=== PATIENT | female | born 1950 | race Caucasian/White ===

== ENCOUNTER 2023-01-22 13:09 | Emergency (ER) | payer MEDICARE, SELFPAY ==
[2023-01-22] VITALS (7 sets, daily range): BP systolic 146–163; BP diastolic 91–103; PULSE 106–110; RESP 23–29; TEMP 37.3; O2SAT 98–99; BMI 23.2
--- NOTE | 2023-01-22 13:14 | EKG12_ITS ---
Test Reason : NEURO Blood Pressure : / mmHG Vent. Rate : 109 BPM Atrial Rate : 109 BPM P-R Int : 174 ms QRS Dur : 090 ms QT Int : 352 ms P-R-T Axes : 071 047 061 degrees QTc Int : 474 ms Sinus tachycardia Otherwise normal ECG Confirmed by MARSHALL HASSAN, SALLY ([id number]), assignment desk editor CIARA MARQUIS ([id number]) on 01/23/2023 2:20:54 PM Referred By: Confirmed By:SALLY OLIVARES MD
--- NOTE | 2023-01-22 13:14 | CT_ITS ---
STUDY: CT HEAD STROKE PROTOCOL W/O CONTRAST INJECTION REASON FOR EXAM: Female, 72 years old. Neuro deficit, acute, stroke suspected RADIATION DOSAGE (If Supplied By Facility): CTDIvol = ( 44.99 ) mGy, DLP = ( 796.11 ) mGycm TECHNIQUE: Transaxial CT imaging of the brain was performed without administration of intravenous contrast material. Individualized dose optimization techniques were used for this CT. COMPARISON: No relevant priors. FINDINGS: Normal soft tissue structures. Normal calvarium. There is mild cerebral atrophy with widening of the extra-axial spaces and ventricular dilatation. There are areas of decreased attenuation within the white matter tracts of the supratentorial brain, consistent with microvascular disease changes. There is evidence of a ischemic change in the right basal ganglion. There are small punctate calcifications of the basal ganglia which are seen in the aging brain as a normal variant. Normal brainstem. Normal cerebellum. There is no intracranial hemorrhage. There are no findings of an acute ischemic infarction. Normal visualized paranasal sinuses. ASPECT score: 8 CT/STROKE Brain/Head without Cont IMPRESSION: Findings suggestive of a lacunar infarct in the right basal ganglion. N.B. : The above Results were Read Back by Samm Salmon MD to Dr Jarrod DO, and understanding confirmed on 01/22/2023 13:52:08 (ET). Electronically Signed: Samm Salmon MD at 13:53 EDT ,
--- NOTE | 2023-01-22 13:15 | CT_ITS ---
INDICATION: Neuro deficit, acute, stroke suspected --CTA NECK: AORTIC ARCH AND BRANCHES: Normal anatomy, patent. RIGHT CCA: No occlusion, significant stenosis or dissection. RIGHT ICA: Mild atherosclerotic calcifications in the right bulb region extending to the origin of the right internal carotid artery without significant stenosis. LEFT CCA: No occlusion, significant stenosis or dissection. LEFT ICA: Severe narrowing and near complete occlusion of the origin of the left internal carotid artery. Filling defects in the proximal left internal carotid artery consistent with thrombus. Diffuse narrowing of the caliber of the distal left internal carotid artery. RIGHT VERTEBRAL ARTERY: No occlusion, significant stenosis or dissection. LEFT VERTEBRAL ARTERY: No occlusion, significant stenosis or dissection. NECK SOFT TISSUES: Large right lobe of the thyroid gland with possible small nodules. --CTA HEAD: --Anterior circulation: ICAs: There are sclerotic calcifications with moderate narrowing of the left supraclinoid internal carotid artery. ACAs: No significant stenosis at the visualized A1 and A2 segments. ACOM: Present. MCAs: Unremarkable right M1 and M2 segments. Severe irregularity and narrowing of the left M1 and proximal M2 segments consistent with thrombus. --Posterior circulation: PCOMs: hemstitcher: No significant stenosis at the visualized segments. BASILAR ARTERY: No significant stenosis. VERTEBRAL ARTERIES: Dominant left and small right vertebral arteries No evidence of intracranial aneurysm or vascular malformation. CT/STROKE CTA Head AND Neck W/Con IMPRESSION: 1. Moderate narrowing and irregularity of the left M1 and M2 segments of the middle cerebral artery consistent with thrombus. 2. Otherwise no intracranial vessel stenosis is seen. 3. Severe narrowing and near complete occlusion of the origin of the left internal carotid artery with filling defects/clots in the proximal left internal carotid artery. 4. Mild atherosclerotic changes in the right bulb and proximal right internal carotid arteries without significant stenosis. 5. Patent bilateral vertebral arteries. N.B. : The above Results were Read Back by Florentino Stevens MD to Black Garay DO, and understanding confirmed on 01/22/2023 14:00:15 (ET). Electronically Signed: Florentino Stevens MD at 14:02 EDT ,
--- NOTE | 2023-01-22 13:15 | EX.ED.DYSGE1 ---
HPI History of Present Illness Chief Complaint: Stroke Alert Narrative Narrative: Patient is a 72-year-old female who is presenting to the ER with chief complaint of strokelike signs or symptoms. Patient's sister and son are at bedside. Patient takes no medications, she currently has no PCP. Patient has not seen a PCP in over 3 to 5 years. Last known normal was 10 PM last night. Patient lives at home with her son. Son did not see her this morning. Patient's sister brought her to the ER, stating that she is confused, not talking right, and weak on the right side of her body. There is a text phone group between patient's sister at bedside and another sibling in [place] where patient was not acting normal and responding normal, so the sister in [place] called the sister who is here at bedside to go check on her at home. Patient was having right-sided weakness, she was not using her arm on the right side. Patient has some speech difficulties, was acting confused, so patient was brought to the ER by her sister. Patient smokes 1 to 2 packs of cigarettes a day, rare alcohol use. No trauma. Stroke alert has been called at approximately 1:05 PM. [facility] NK 01/22/23 [History Last Taken Unknown] Allergy/AdvReac Type Severity Reaction Status Date / Time Sulfa (Sulfonamide Allergy Unknown PT UNSURE Verified 01/22/23 13:34 Antibiotics) OF REACTION Surgical History (Updated 01/22/23 @ 13:32 by Vlad Bronson) S/P cataract surgery Social History Smoking Status: Current every day smoker tobacco type: cigarettes ROS ROS ED ROS Narrative REVIEW OF SYSTEMS: Unless otherwise stated in this report the patient's positive and negative responses for review of systems for constitutional, eyes, ENT, cardiovascular, respiratory, gastrointestinal, neurological, , musculoskeletal, and integument systems and related systems to the presenting problem are either stated in the history of present illness or were not pertinent or were negative for the symptoms and/or complaints related to the presenting medical problem. EXAM Physical Exam Narrative Exam Narrative: Vital signs reviewed and patient is not hypoxic. General: The patient appears well and in no apparent distress. Patient is resting comfortably on cart. Not toxic, lethargic, or listless. Patient smells of cigarettes Skin: Warm, dry, no pallor noted. There is no rash noted. Head: Normocephalic, atraumatic, mild left facial droop, tongue midline. Uvula midline. Eye: Normal conjunctiva, no drainage, EOMI. PERRL. Ears, Nose, Mouth, and Throat: oral mucosa is moist. Nares patent. Mouth without vesicles. Cardiovascular: Regular Rate and Rhythm, no murmurs, gallops, or rubs Respiratory: Patient is in no distress, no accessory muscle use, lungs are clear to auscultation, no wheezing, rales or rhonchi Back: non-tender, no CVA tenderness bilaterally to percussion. NO CTLS midline or paraspinal tenderness to palpation. GI: Soft, no tenderness to palpation, no masses appreciated. No rebound, guarding, or rigidity noted. Musculoskeletal: The patient has full range of motion of all extremities and joints with no difficulty. Patient has no motor, no sensory deficits. Neurological: A&O 2, slightly confused to time,, minimal aphasia and dysarthria, + focal neurological deficits. Initial NIH exam performed by myself showed 1 for level of consciousness, 1 forgetting the month wrong, 1 for facial droop on the left, 1 for [id number], 3 for right arm no effort against gravity, 2 for right leg pronator drift and leg hits bed, 1 for expressive aphasia, 1 for dysarthria. NIH 11 Psychiatric: Cooperative Multiple repeat any stroke scales have been done on this patient, please see nursing notes and Dr Velarde notes as well. Const Vital Signs: 01/22/23 13:24 01/22/23 13:29 01/22/23 13:14 Temperature 99.2 F H Temperature Source Temporal Pulse Rate 110 H 109 H Respiratory Rate 29 H 29 H Blood Pressure 151/96 H 156/91 H Blood Pressure Mean 114 112 Pulse Ox 98 98 98 Oxygen Delivery Method Nasal Cannula Nasal Cannula Nasal Cannula Oxygen Flow Rate (L/min) 2 2 2 01/22/23 13:44 01/22/23 13:48 01/22/23 14:00 Temperature Temperature Source Pulse Rate 106 H 107 H 109 H Respiratory Rate 28 H 23 H 27 H Blood Pressure 163/92 H 163/92 H 146/103 H Blood Pressure Mean 115 115 117 Pulse Ox 98 98 98 Oxygen Delivery Method Nasal Cannula Nasal Cannula Nasal Cannula Oxygen Flow Rate (L/min) 2 2 2 01/22/23 14:09 Temperature Temperature Source Pulse Rate 106 H Respiratory Rate 24 H Blood Pressure 146/103 H Blood Pressure Mean 117 Pulse Ox 99 Oxygen Delivery Method Oxygen Flow Rate (L/min) MDM MDM MDM Narrative Medical decision making narrative: Patient is presenting with moderate strokelike signs or symptoms. Patient has mild left facial droop, some aphasia and dysarthria, patient's right arm is flaccid, patient has weak right leg as well. Patient has history of noncompliance, patient has not seen a doctor in over 3 to 5 years, she takes no medications daily. Patient smokes 1 to 2 packs of cigarettes a day, no alcohol use. Patient's last known normal was 10 PM last night. Patient was brought to the ER by her sister, son is at bedside as well. Patient had stroke alert called, Dr Velarde was the stroke neurologist who evaluated the patient and recommended by life flight, endovascular care, and transfer ER to ER. She recommended no other medications at this time. Please see her consultation note. She had an NIH [address] Velarde as reported from nurses at bedside during the robot examination by Modesta. 1400 patient's symptoms are improving. Patient no longer has a pronator drift to the right leg. Patient's dysarthria and aphasia have improved. Patient has minimal left facial droop. Patient's right arm is no longer minimal effort to gravity, patient is able to hold her right arm up for 10 seconds, she does still have a pronator drift of the right arm but it has improved. Patient realizes that her symptoms are getting better as well. [address] [id number]. They are recommending no antihypertensive meds to be given, they are allowing permissive hypertension at this time, last blood pressure was 140s over 100s. Patient is being flown to [facility], patient be seen evaluated by the stroke team and most likely have endovascular procedures. Significant mount time is been spent at bedside from patient's arrival until discharge. I have received 2 different phone calls from the radiologist about the stroke CT of the brain and also the CT of the head neck. Please see official reports. Patient's symptoms have improved, patient is thankful for help and care along with family. No medications were recommended by to be given in the ER. Critical care time 55 minutes exclusive from separate billable procedures that were performed. The following was considered in the determination of critical care but not limited to the level of medical decision making, intensive cardiac and/or respiratory monitoring, frequent vital sign monitoring, evaluation of laboratory studies, evaluation of radiographic studies, oxygen monitoring, and constant monitoring and speaking to family at bedside Lab Data Attestation: I reviewed the patient's lab results. Labs: Laboratory Results - last 24 hr 01/22/23 01/22/23 13:12 13:20 WBC 9.1 RBC 4.67 Hgb 14.9 Hct 44.6 MCV 95.5 MCH 31.9 MCHC 33.4 RDW Std Deviation 46.1 H RDW Coeff of Edith 13.0 Plt Count 214 MPV 11.1 Immature Gran % (Auto) 0.400 Neut % (Auto) 87.4 H Lymph % (Auto) 7.8 L [place] % (Auto) 4.2 Eos % (Auto) 0.0 Baso % (Auto) 0.2 Absolute Neuts (auto) 7.9 H Absolute Lymphs (auto) 0.71 L Nucleated RBC % 0 PT 13.0 INR 1.0 APTT 26.1 Sodium 133 L Potassium 3.8 Chloride 101 Carbon Dioxide 25.0 Anion Gap 7 BUN 18 Creatinine 1.22 H Estim Creat Clear Calc 40.17 Est GFR (MDRD) Af Amer 56 L Est GFR (MDRD) Non-Af 46 L BUN/Creatinine Ratio 14.8 Glucose 133 H Calcium 9.9 Troponin I High Sens 14 POC Glucose 130 H Radiography Diagnostic Testing: Clinical Impression(s) from Imaging Studies Brain CT 01/22/23 13:14 IMPRESSION: Findings suggestive of a lacunar infarct in the right basal ganglion. N.B. : The above Results were Read Back by Samm Salmon MD to Dr Jarrod DO, and understanding confirmed on 01/22/2023 13:52:08 (ET). Electronically Signed: Samm Salmon MD at 13:53 EDT , ADDENDUM: 01/22/23 1400 IMPRESSION: Findings suggestive of a lacunar infarct in the right basal ganglion. N.B. : The above Results were Read Back by Samm Salmon MD to Dr Jarrod DO, and understanding confirmed on 01/22/2023 13:52:08 (ET). Electronically Signed: Samm Salmon MD at 13:53 EDT , ADDENDUM: 01/22/23 1406 IMPRESSION: undefined Head/Neck CTA 01/22/23 13:15 IMPRESSION: 1. Moderate narrowing and irregularity of the left M1 and M2 segments of the middle cerebral artery consistent with thrombus. 2. Otherwise no intracranial vessel stenosis is seen. 3. Severe narrowing and near complete occlusion of the origin of the left internal carotid artery with filling defects/clots in the proximal left internal carotid artery. 4. Mild atherosclerotic changes in the right bulb and proximal right internal carotid arteries without significant stenosis. 5. Patent bilateral vertebral arteries. N.B. : The above Results were Read Back by Florentino Stevens MD to Black Garay DO, and understanding confirmed on 01/22/2023 14:00:15 (ET). Electronically Signed: Florentino Stevens MD at 14:02 EDT , ADDENDUM: 01/22/23 1409 IMPRESSION: 1. Moderate narrowing and irregularity of the left M1 and M2 segments of the middle cerebral artery consistent with thrombus. 2. Otherwise no intracranial vessel stenosis is seen. 3. Severe narrowing and near complete occlusion of the origin of the left internal carotid artery with filling defects/clots in the proximal left internal carotid artery. 4. Mild atherosclerotic changes in the right bulb and proximal right internal carotid arteries without significant stenosis. 5. Patent bilateral vertebral arteries. N.B. : The above Results were Read Back by Florentino Stevens MD to Black Garay DO, and understanding confirmed on 01/22/2023 14:00:15 (ET). Electronically Signed: Florentino Stevens MD at 14:02 EDT , EKG Initial EKG: Attestation: I personally reviewed and interpreted this EKG as follows: Comments: EKG interpretation. Sinus tachycardia at 109. Normal axis deviation. No acute ST elevation, no acute ectopy. QTc of 474. Critical Care Time Critical Care Time: Yes Critical care time (excluding procedures): 30-74 minutes (Critical care time 55 minutes exclusive from separate billable procedures that were performed. The following was considered in the determination of critical care but not limited to the level of medical decision making, intensive cardiac and/or respiratory monitoring, frequent vital sign monitoring, ), Discussing w/Patient &/or Family/Drive In Theater Attendant, Discussing w/Consultants, Arranging Admission or Transfer and Performing Direct Patient Care at Bedside Discharge Plan Triage Chief Complaint: Stroke Alert ED Provider: Black Garay Dx/Rx/DC Orders Clinical Impression: Ischemic cerebrovascular accident (CVA), Hypertensive emergency, Tobacco abuse counseling, Medically noncompliant, Tobacco abuse Prescriptions: No Action NK Primary Care Provider: Care Physician,No Primary Referrals: Care Physician,No Primary [Primary Care Provider] - Disposition Disposition: Acute Care Hospital Discharge Location: [facility] Discharge Date/Time: 01/22/23 14:21
[2023-01-22 13:21] LABS: Absolute Lymphocyte Count 0.71 X10^3/uL (0.83-4.51); Absolute Neutrophil Count 7.9 X10^3/uL (2.0-7.7); Basophil# 0.02 X10^3/uL; Basophil% 0.2 % (0-1); Hematocrit 44.6 % (37-47); Hemoglobin 14.9 g/dL (12.0-15.0); Lymphocyte # 0.71 X10^3/ul (0.83-4.51); Lymphocyte % 7.8 % (19-41); Mean Corp Hgb Conc 33.4 g/dL (32-36); Mean Corpuscular Hgb 31.9 pg (27.0-32.0); Mean Corpuscular Volume 95.5 fL (81-99); Mean Platelet Vol. 11.1 fl (6.2-12.0); Monocyte# 0.38 X10^3/uL; Monocyte% 4.2 % (0-10); NRBC Flagged by Analyzer 0 % (0-5); Neutrophil # 7.92 X10^3/uL (2.7-7.7); Neutrophil % 87.4 % (47-70); Platelet Count 214 K/mm3 (150-450); RBC Distribution Width SD 46.1 fl (35.1-43.9); Red Blood Count 4.67 M/mm3 (4.2-5.4); White Blood Count 9.1 K/mm3 (4.4-11.0)
--- NOTE | 2023-01-22 13:22 | CM.ED ---
Social Work Note Referral Source: Stroke Alert Referral Reason: emotional support SW responded to stroke alert and introduced herself and role to patient's son and sister. Emotional support provided, SW remains available if additional needs arise. Samanta Horton MSW, JO ANN
[2023-01-22 13:34] LABS: Partial Thromboplast Time 26.1 Seconds (24.1-36.2)
[2023-01-22 13:37] LABS: Anion Gap 7 (5-15); BUN 18 mg/dL (7-18); BUN/Creat Ratio 14.8 RATIO (10-20); Calcium,Total 9.9 mg/dL (8.5-10.1); Chloride 101 mmol/L (98-107); Creatinine, Serum 1.22 mg/dL (0.55-1.02); EST Glomerular Filtration Rate 46 mL/min (>60); Est Glom Filt Rate - Afr Amer 56 mL/min (>60); Estimated Creatinine Clearance 40.17 ml/min; Glucose 133 mg/dL (74-106); Potassium 3.8 mmol/L (3.5-5.1); Sodium Level 133 mmol/L (136-145); Troponin-I HS 14 pg/mL (3.0-54.0)
[2023-01-22 13:42] LABS: Bedside Glucose 130 mg/dL (74-106)
--- NOTE | 2023-01-22 14:05 | CHAPLAIN ---
Type of Pastoral Visit ___ Initial Visit ___ Follow-up Visit ___ On-call Visit ___ General Patient Visit ___ Spiritual Assessment ___ Family Conference ___ Bereavement _x__ Rapid Response ___ Code Blue ___ Other (describe below) Pastoral Care Referral From ___ Patient ___ Family ___ Nurse ___ Physician ___ Field Supervisor Seed Production ___ Carpenter Helper _x__ Other (describe below) Sacrament/Intervention _x__ Active listening ___ Anointing ___ Caodaism ___ Bereavement ___ Communion ___ Inez exploration ___ ___ Life review _x__ Prayer ___ Reconciliation ___ Sacrament of Sick _x__ Supportive presence ___ Wedding ___ Other (describe below) Pastoral Comments responded to stroke alert and along with SW offered support; talked with son and sister as they waited for patient to return from [place]; sister asked for prayer and prayer was given; when pt returned introduced self to her and affirmed good team of care for her needs; presence given; reported to SW about current status and waiting on evaluation of neurologist in [facility]
== END 2023-01-22 14:21 | disposition short-term general hospital (02) ==
PROVIDERS: Emergency Provider Emergency Medicine; Visit Provider Emergency Medicine
DX: I63.9 Cerebral infarction, unspecified (principal); Z91.199 Patient's noncompliance with other medical treatment and regimen due to unspecified reason; F17.210 Nicotine dependence, cigarettes, uncomplicated; I16.1 Hypertensive emergency; R53.1 Weakness
CPT/HCPCS: 70450; 70496; 70498; 80048; 82962; 84484; 85025; 85610; 85730; 93005; 99284; Q9967; A4216